=== PATIENT | female | born 1965 | race Caucasian/White ===

== ENCOUNTER → 2017-02-27 | Day surgery (SDC) | payer BC ==
[~2017-02-27] VITALS: Ht 167.6 cm; Wt 61.2 kg
[~2017-02-27] MED LIST: ALPR0.25 PO; CETI10TA17 PO; ESTR1TAB24 PO; FLUMAZENIL (ROMAZICON) 0.1 MG/ML 5 ML VIAL INJ PRN; MIDAZOLAM 2 MG/2 ML (VERSED) VIAL ONE; MIDAZOLAM 5 MG/5 ML (VERSED) VIAL ONE; NALOXONE 0.4 MG/ML 1 ML (NARCAN) VIAL IVP PRN; NEBI5TAB8 PO; NS IV 500 ML 500 ML IV PRN; NS IV 500 ML 500 ML ONE; TRAM50TA2 PO; [UNRECOGNIZED DRUG - CODE] PO; fentaNYL INJECTION 100 MCG/2 ML AMP ONE
--- NOTE | 2017-02-27 18:08 | ED EENT ---
History of Present Illness General Stated Complaint: FOREIGN OBJECT THROAT Source: patient, family Exam Limitations: no limitations History of Present Illness Time seen by provider: 18:04 Initial Comments Patient presents with her to the ER because she had swallowed a piece of meat around noon and got stuck in the back of her throat she is unable to swallow her secretions or any food or fluids pass the meat bolus. She has a patent airway and is able to speak although mildly hoarse. She says this is happened before but she is always been able to get the food to regurgitate by sticking her fingers in the back of her throat. Patient denies any liver disease , smoking or drug use or hepatitis history. She does however note occasional drink of alcohol. The patient said it was about 12:00 in the afternoon today when she ingested the meat bolus. Allergies and Home Medications Allergies Coded Allergies: Penicillins (Verified Allergy, Mild, 04/28/16) codeine (Unverified Adverse Reaction, Mild, NAUSEA, 04/27/16) Home Medications Alprazolam 0.25 Mg Tablet, 0.25 MG PO PRN, (Reported) Cetirizine HCl 10 Mg Tablet, 10 MG PO DAILY, (Reported) Estradiol 1 Mg Tablet, 1 MG PO DAILY, (Reported) Nebivolol HCl 5 Mg Tablet, 5 MG PO DAILY, (Reported) Tramadol HCl 50 Mg Tablet, 50 MG PO Q12H PRN for PAIN, #20 Prescribed by: JANICE REDDY on 04/28/16 1338 [Est Estrg/Mtest] , 1 TAB PO DAILY, (Reported) Review of Systems Constitutional: No chills, No fever Eyes: Denies Blindness, Denies Pain Nose: denies congestion, denies pain Mouth: denies pain, denies swelling Throat: pain, swelling, hoarse, other (complete esophageal blockage.) Respiratory: No cough, No phlegm, No short of breath, No wheezing Cardiovascular: No chest pain, No syncope Gastrointestinal: No abdominal pain, No constipation, No nausea, No vomiting Past Idfucyo-Pmhvtc-Zkepfw Hx Patient Social History Alcohol Use: Occasionally Uses Recreational Drug Use: No Smoking Status: Never a Smoker Recent Foreign Travel: No Contact w/Someone Who Travel: No Surgeries HX Surgeries: Yes (ORAL SURGERY) Respiratory Hx Respiratory Disorders: No Cardiovascular Hx Cardiac Disorders: Yes Neurological Hx Neurological Disorders: No Reproductive System Hx Reproductive Disorders: No Sexually Transmitted Disease: No HIV/AIDS: No Genitourinary Hx Genitourinary Disorders: No Gastrointestinal Hx Gastrointestinal Disorders: No Musculoskeletal Hx Musculoskeletal Disorders: Yes Musculoskeletal Disorders: Arthritis, Fibromyalgia Endocrine Hx Endocrine Disorders: No HEENT Loss of Vision: Bilateral Hearing Impairment: Denies Cancer Hx Cancer: No Psychosocial Hx Psychiatric Problems: Yes Behavioral Health Disorders: Anxiety Integumentary HX Skin/Integumentary Disorder: No Blood Transfusions Hx Blood Disorders: No Adverse Reaction to a Blood Tr: No (N/A) Physical Exam Vital Signs Vital Sign - Last 12Hours 02/27/17 18:15 Temp 97.5 Pulse 70 Resp 18 B/P (MAP) 148/107 Pulse Ox 98 O2 Delivery Room Air General Appearance: WD/WN, mild distress Eyes: bilateral eye EOMI, bilateral eye PERRL, bilateral eye normal inspection Nose: normal inspection, No sinus tenderness Mouth/Throat: normal mouth inspection, pharynx normal, excessive drooling, No pharynx swelling, No tongue swollen Neck: full range of motion, normal inspection, tender midline Cardiovascular: normal peripheral pulses, regular rate, rhythm Respiratory: chest non-tender, lungs clear Neurologic/Psychiatric: alert, oriented x 3 Skin: normal color, warm/dry Progress/Results/Core Measures Results/Orders My Orders Orders - ASHLY SHELL Suction Airway (02/27/17 18:22) Saline Lock/Iv-Start (02/27/17 18:22) Vital Signs/I&O Vital Sign - Last 12Hours 02/27/17 18:15 Temp 97.5 Pulse 70 Resp 18 B/P (MAP) 148/107 Pulse Ox 98 O2 Delivery Room Air Progress Note : Time: 18:20 Progress Note Over 6 hours of food bolus impaction and unable to pass any secretions or drink fluid past it. She will need a emergent bolus disimpaction. We'll contact general surgery. Plan to do postop here in the ER. The patient does not require anything for nausea or pain at this time. We'll get an IV started and a Yankauer for suctioning her mouth out. 2119: Status post endoscopic retrieval of food bolus by Dr. Reddy. Patient is doing well alert awake oriented swallowing her own secretions and is eaten an entire cup of ice chips without difficulty or reflux. She states she does not have a history of acid reflux or dysphagia other than the few times that food has gotten stuck in her throat. Images from the endoscopy did demonstrate some narrowing. Dr. Reddy wants to see her in the clinic this week in 4 days. No instructions were given from the surgeon for Carafate or a PPI. We'll start her a liquid diet and allow her to talk advance it as tolerated. Patient has her to drive her home. Consults Consults : Consulting Physician: JANICE REDDY MD Consults Notes 1820 spoke with general surgery and they plan to take her to ICU to do endoscopic retrieval of food bolus. Departure Impression Impression: Primary Impression: Foreign body in esophagus Qualified Codes: T18.108A - Unspecified foreign body in esophagus causing other injury, initial encounter Disposition: HOME, SELF-CARE Condition: Improved Departure-Patient Inst. Decision time for Depature: 21:16 Referrals: ARLEN HEATH MD (PCP/Family) Primary Care Physician Patient Instructions: Foreign Body, Swallowed, Adult (DC) Add. Discharge Instructions: You should keep your appointment with Dr. Reddy this . Start with a liquid diet and advance it as soon as you tolerate towards a regular diet. You should not drive home as the medicines you've been given we'll make you drowsy. By tomorrow you're okay to resume your normal activity and diet as you tolerated. If you have further recurrent symptoms he should return to the ER or your primary care physician as appropriate. Make sure you're chewing her food completely and you should take small bites. ASHLY SHELL Feb 27, 2017 18:07
[2017-02-27] MEDS: HURRICAINE EXT TUBE (BENZOCAINE) ONE (19:30)
[2017-02-27] MEDS: fentaNYL INJECTION 100 MCG/2 ML AMP IVP PRN ×2 (19:35→19:42)
--- NOTE | 2017-02-27 19:37 | History & Physicial ---
History of Present Illness History of Present Illness Reason for visit/HPI Food impaction in esophagus Date of Admission I consulted on this patient on 02/27/17 19:35 Attending Physician Janice Longoria MD Admitting Physician Sergio Freed MD Consult JANICE LONGORIA MD Allergies and Home Medications Allergies Coded Allergies: Penicillins (Verified Allergy, Mild, 04/28/16) codeine (Unverified Adverse Reaction, Mild, NAUSEA, 04/27/16) Home Medications Alprazolam 0.25 Mg Tablet, 0.25 MG PO PRN, (Reported) Cetirizine HCl 10 Mg Tablet, 10 MG PO DAILY, (Reported) Estradiol 1 Mg Tablet, 1 MG PO DAILY, (Reported) Nebivolol HCl 5 Mg Tablet, 5 MG PO DAILY, (Reported) Tramadol HCl 50 Mg Tablet, 50 MG PO Q12H PRN for PAIN, #20 Prescribed by: JANICE LONGORIA on 04/28/16 1338 [Est Estrg/Mtest] , 1 TAB PO DAILY, (Reported) Past Lursdub-Ssgaoy-Atufbj Hx Patient Social History Marrital Status: Employed/Student: employed Alcohol Use: Occasionally Uses Recreational Drug Use: No Smoking Status: Never a Smoker Recent Foreign Travel: No Contact w/other who traveled: No Recent Hopitalizations: No Recent Infectious Disease Expo: No Surgeries HX Surgeries: Yes (ORAL SURGERY) Surgeries: Hysterectomy Respiratory Hx Respiratory Disorders: No Cardiovascular Hx Cardiovascular Disorders: Yes Neurological Hx Neurological Disorders: No Reproductive System Hx Reproductive Disorders: No Sexually Transmitted Disease: No HIV/AIDS: No Genitourinary Hx Genitourinary Disorders: No Gastrointestinal Hx Gastrointestinal Disorders: No Musculoskeletal Hx Musculoskeletal Disorders: Yes Musculoskeletal Disorders: Arthritis, Fibromyalgia Endocrine Hx Endocrine Disorders: No HEENT Loss of Vision: Bilateral Hearing Impairment: Denies Cancer Hx Cancer: No Psychosocial Hx Psychiatric Problems: Yes Behavioral Health Disorders: Anxiety Integumentary HX Skin/Integumentary Disorder: No Blood Transfusions Hx Blood Disorders: No Adverse Reaction to a Blood Tr: No (N/A) Constitutional: no symptoms reported EENTM: no symptoms reported Respiratory: cough Cardiovascular: no symptoms reported Gastrointestinal: dysphagia Genitourinary: no symptoms reported Skin: no symptoms reported Psychiatric/Neurological: No Symptoms Reported Physical Exam Vital Signs Vital Sign - Last 12Hours 02/27/17 18:15 Temp 97.5 Pulse 70 Resp 18 B/P (MAP) 148/107 Pulse Ox 98 O2 Delivery Room Air Capillary Refill : Less Than 3 Seconds General Appearance: Severe Distress HEENT: Normal ENT Inspection Neck: Normal Inspection Respiratory: Lungs Clear Cardiovascular: Regular Rate, Rhythm Gastrointestinal: Non Tender, Soft Extremity: Normal Inspection Neurologic/Psychiatric: Alert, Oriented x3 Skin: Warm/Dry Assessment/Plan Assessment and Plan Food impaction in esophagus. for endoscopic disimpaction Problems: Admission Diagnosis Foreign body in esophagus JANICE LONGORIA MD Feb 27, 2017 7:37 pm
[2017-02-27] MEDS: MIDAZOLAM 2 MG/2 ML (VERSED) VIAL IVP PRN ×3 (19:40→19:45)
[2017-02-27] MEDS: MIDAZOLAM 5 MG/5 ML (VERSED) VIAL IVP PRN ×3 (19:48→19:52)
--- NOTE | 2017-02-27 19:53 | Conscious Sedation/ASA ---
Conscious Sedation Pre-Proced ASA Class: 2 Airway Mallampati Classification: (osage appropriate class) I. II. III, IV Lungs Heart ASA score ASA 1: a normal healthy patient ASA 2: a patient with a mild systemic disease (mid diabetes, controlled hypertension, obesity ASA 3: a patient with a severe systemic disease that limits activity (angina , COPD, prior Myocardial infarction) ASA 4: a patient with an incapacitating disease that is a constant threat to life (CHF, renal failure) ASA 5: a moribund patient not expected to survive 24 hrs. (ruptured aneurysm) ASA 6: a declared brain patient whose organs are being harvested. For emergent operations, add the letter E after the classification Grade 2 Sedation Plan: Discussed options with patient/fam Note The patient is an appropriate candidate to undergo the planned procedure, sedation, and anesthesia. The patient immediately re-assessed prior to indication. JANICE REDDY MD Feb 27, 2017 7:53 pm
--- NOTE | 2017-02-27 19:53 | Endoscopy Procedure Report ---
Endoscopy Report Date: Feb 27, 2017 Preoperative Diagnosis: Food impaction in esophagus Study Performed: Upper Endoscopy Procedure Instrument: Endoscope JANICE REDDY MD Feb 27, 2017 7:53 pm
--- NOTE | 2017-02-27 19:55 | Discharge Inst-Simple/Standard ---
Discharge Inst-Standard Discharge Medications New, Converted or Re-Newed RX: Call to Patients Pharmacy Patient Instructions/Follow Up Plan of Care/Instructions/FU: Protonix 40 mg daily for 30 days with 5 refills. F/U with me on , the Activity as Tolerated: Yes Discharge Diet: Soft Diet JANICE REDDY MD Feb 27, 2017 7:55 pm
[2017-02-27 21:21] VITALS: BP 129/95
--- NOTE | 2017-02-28 08:57 | PROCEDURE REPORT ---
PROCEDURE PHYSICIAN: JANICE REDDY DATE OF PROCEDURE: 02/27/2017 PROCEDURE: 1. Upper endoscopy. 2. Disimpaction of food bolus in the esophagus. 3. Balloon dilatation of distal esophageal stricture. SURGEON: Dr. Rdedy. INDICATION FOR THE PROCEDURE: This lady presented to the emergency room with impaction of a piece of pork in her esophagus. She was offered endoscopic management associated with possible dilatation, should a stricture be encountered. Informed consent was obtained after reviewing the procedures in detail. DESCRIPTION OF PROCEDURE: She was brought to the Intensive Care Unit and conscious sedation achieved using Versed and fentanyl. The flexible gastroscope was introduced down the esophagus where the impacted food was found at the proximal esophagus. This was gently disimpacted and advanced into the stomach. Endoscopic examination of the stomach and duodenum were normal. The scope was then brought back to the esophagus, which was examined thoroughly. FINDINGS: 1. Proximal esophageal stricture where the impaction had occurred, at about 20 cm from the incisors. It was inflamed and therefore balloon dilatation was deferred. 2. Tortuous esophagus, possibly contributing to her symptom. 3. Distal esophageal stricture, possibly peptic in nature, that was dilated to 20 mm with a balloon. She tolerated the procedure well and was taken to the emergency room, to be discharged as an outpatient. IMPRESSION: Food impaction of the esophagus. Stricture at 2 levels. Distal stricture dilated. She will be brought back in a couple of weeks to undergo further dilatation of the proximal esophageal stricture. Job ID: [id number] Dictated Date: 02/27/2017 19:58:05 Sand Operator Date: 02/28/2017 08:53:21 / radha MONTILLA
== END | disposition home or self-care (01) ==
LOC: EDUNIT# 17:53 → ER 17:55 → ENDO 18:25
PROVIDERS: ATTEND Surgery
DX: T18.128A Food in esophagus causing other injury, initial encounter (principal); K22.2 Esophageal obstruction; Y92.019 Unspecified place in single-family (private) house as the place of occurrence of the external cause

== ENCOUNTER → 2019-05-11 | Outpatient (CLI) | payer BC ==
[~2019-05-11] MED LIST changes: -FLUMAZENIL (ROMAZICON) 0.1 MG/ML 5 ML VIAL INJ PRN; -MIDAZOLAM 2 MG/2 ML (VERSED) VIAL ONE; -MIDAZOLAM 5 MG/5 ML (VERSED) VIAL ONE; -NALOXONE 0.4 MG/ML 1 ML (NARCAN) VIAL IVP PRN; -NS IV 500 ML 500 ML IV PRN; -NS IV 500 ML 500 ML ONE; -fentaNYL INJECTION 100 MCG/2 ML AMP ONE
== END ==
LOC: RAD 14:58
PROVIDERS: ATTEND Obstetrics & Gynecology
DX: Z12.31 Encounter for screening mammogram for malignant neoplasm of breast (principal)
CPT/HCPCS: 77067

== ENCOUNTER → 2020-05-27 | Outpatient (CLI) | payer BC ==
[~2020-05-27] MED LIST changes: -TRAM50TA2 PO; +TRM50T PO
--- NOTE | 2020-05-27 16:13 | Diagnostic Imaging Report ---
INDICATION: Routine screening. Comparison is made with prior mammogram from 05/11/2019 and 01/02/2016. 2-D and 3-D bilateral screening mammography was performed with CAD. Both breasts remain heterogeneously dense, limiting sensitivity of mammography. Rounded densities in the upper retroareolar left breast are noted appear similar to prior exam. This most likely represent cysts. There are benign calcifications in the right breast. No malignant appearing microcalcifications are seen. Axillae are unremarkable. IMPRESSION: BI-RADS Category 2 No mammographic features suspicious for malignancy are identified. ACR BI-RADS Category 2: Benign findings. Result letter will be mailed to the patient. Note: At least 10% of breast cancer is not imaged by mammography. Dictated by: Dictated on workstation # [id number]
== END ==
LOC: RAD 14:30
PROVIDERS: ATTEND Obstetrics & Gynecology
DX: Z12.31 Encounter for screening mammogram for malignant neoplasm of breast (principal)
CPT/HCPCS: 77063; 77067

== ENCOUNTER → 2020-09-08 | Outpatient (CLI) | payer BC | LOC: LABNPT 08:33 | PROVIDERS: ATTEND Nurse Practitioner Family | DX: Z20.828 Contact with and (suspected) exposure to other viral communicable diseases (principal) | CPT/HCPCS: 87635 ==

== ENCOUNTER → 2021-02-25 | Outpatient (CLI) | payer BC ==
--- NOTE | 2021-02-25 09:45 | Diagnostic Imaging Report ---
Indication: Left breast lump. Correlation is made with prior mammogram 05/27/2020 and 05/03/2019. 2-D and 3-D bilateral diagnostic mammography was performed with CAD. Both breasts are heterogeneously dense, limiting sensitivity of mammography. A BB marker was placed at the area of palpable abnormality in the upper outer left breast. There is a circumscribed mass just deep to this location which appears to be slightly larger when compared prior exam, likely an enlarging cyst. No other masses are seen. No malignant appearing microcalcifications are identified. Axillae are unremarkable. IMPRESSION: BI-RADS 0 Enlarging circumscribed density just deep to the area of palpable abnormality upper outer left breast, likely enlarging cyst. Further evaluation with ultrasound is recommended and will be performed today. ACR BI-RADS Category 0: Incomplete. (Needs additional imaging evaluation). Result letter will be mailed to the patient. Note: At least 10% of breast cancer is not imaged by mammography. Dictated by: Dictated on workstation # [id number]
--- NOTE | 2021-02-25 10:06 | Diagnostic Imaging Report ---
INDICATION: Palpable lump left breast. Correlation is made with diagnostic mammogram earlier same day. Sonography interrogation of area palpable lump upper outer left breast was performed. There are 2 cysts side by side at the 1:00 location, 1 to 2 cm from the nipple. Largest measures 1.8 x 0.8 x 1.9 cm, likely accounting for the circumscribed density noted mammographically. There is a slightly thicker walled cyst next to this measuring 1.2 x 0.7 x 1.0 cm. No internal vascularity is seen. No solid masses are detected. IMPRESSION: BI-RADS Category 3 Cysts at the 1:00 location left breast accounting for the mammographic density and palpable abnormality. The smaller cyst does show some slight wall thickening. A follow-up left breast ultrasound in 3 months is recommended to show stability or resolution. ACR BI-RADS Category 3: Probably benign findings. Dictated by: Dictated on workstation # [id number]
== END ==
LOC: RAD 09:01
PROVIDERS: ATTEND Obstetrics & Gynecology
DX: N60.02 Solitary cyst of left breast (principal)
CPT/HCPCS: 76642; 77065; G0279

== ENCOUNTER → 2021-05-25 | Outpatient (CLI) | payer BC ==
--- NOTE | 2021-05-25 14:44 | Diagnostic Imaging Report ---
INDICATION: Six month followup left breast nodules. COMPARISON: Correlation is made with prior mammograms from 02/25/2021 and 05/27/2020. TECHNIQUE: 2D and 3D bilateral diagnostic mammography was performed with CAD. FINDINGS: Both breasts remain heterogeneously dense, limiting the sensitivity of mammography. The circumscribed mass in the upper and outer aspect of the left breast at mid depth is similar in size and was shown by ultrasound to represent a cyst. This will be further evaluated with ultrasound today. No new mass is seen. There are scattered benign calcifications. No malignant appearing microcalcifications are seen. The axillae are unremarkable. IMPRESSION: Known left breast cyst in the upper outer left breast. This will be further evaluated with ultrasound today. No new abnormality is detected. ACR BI-RADS Category 0: Incomplete. (Needs additional imaging evaluation). Result letter will be mailed to the patient. Note: At least 10% of breast cancer is not imaged by mammography. Dictated by: Dictated on workstation # [id number]
--- NOTE | 2021-05-25 15:41 | Diagnostic Imaging Report ---
INDICATION: Left breast cysts. Patient presents for followup. COMPARISON: Correlation is made with the prior left breast ultrasound from 02/25/2021. FINDINGS: The previously noted thick-walled cyst at the 1 o'clock location of the left breast is no longer visualized. The simple cyst noted at this location persists and measures slightly larger at 2.3 x 2.2 x 0.7 cm compared with 1.8 x 0.8 x 1.9 cm. No solid mass is detected. IMPRESSION: Resolution of the previously noted thick-walled cyst at the 1 o'clock location of the left breast. The previously noted simple cyst does measure slightly larger on today's study. The patient may return to routine annual screening mammography. ACR BI-RADS Category 2: Benign findings. Result letter will be mailed to the patient. Note: At least 10% of breast cancer is not imaged by mammography. Dictated by: Dictated on workstation # [id number]
== END ==
LOC: RAD 13:45
PROVIDERS: ATTEND Obstetrics & Gynecology
DX: N60.02 Solitary cyst of left breast (principal)
CPT/HCPCS: 76642; 77066; G0279; 77062

== ENCOUNTER 2022-11-03 13:34 | Outpatient (RCR) | payer BC ==
[2022-11-03 14:31] LABS: BASOPHILS # (AUTO) 0.1 10^3/uL (0.0-0.1); BASOPHILS % (AUTO) 0 % (0-10); EOSINOPHILS # (AUTO) 4.2 10^3/uL (0.0-0.3); EOSINOPHILS % (AUTO) 30 % (0-10); HEMATOCRIT 41 % (35-52); HEMOGLOBIN 13.7 g/dL (11.5-16.0); LYMPHOCYTES # (AUTO) 1.3 10^3/uL (1.0-4.0); LYMPHOCYTES % (AUTO) 9 % (12-44); MEAN CORPUSCULAR HEMOGLOBIN 31 pg (25-34); MEAN CORPUSCULAR HGB CONC 34 g/dL (32-36); MEAN CORPUSCULAR VOLUME 93 fL (80-99); MEAN PLATELET VOLUME 8.6 fL (9.0-12.2); MONOCYTES # (AUTO) 1.3 10^3/uL (0.0-1.0); MONOCYTES % (AUTO) 10 % (0-12); NEUTROPHILS # (AUTO) 7.1 10^3/uL (1.8-7.8); NEUTROPHILS % (AUTO) 51 % (42-75); PLATELET COUNT 363 10^3/uL (130-400)
[2022-11-03 14:50] LABS: ALANINE AMINOTRANSFERASE 129 U/L (0-55); ALBUMIN 3.5 GM/DL (3.2-4.5); ALKALINE PHOSPHATASE 54 U/L (40-136); BILIRUBIN,TOTAL 0.4 MG/DL (0.1-1.0); BUN/CREATININE RATIO 26; CALCIUM 8.5 MG/DL (8.5-10.1); CARBON DIOXIDE 26 MMOL/L (21-32); CHLORIDE 98 MMOL/L (98-107); CREATININE SERUM 0.74 MG/DL (0.60-1.30); GFR ESTIMATED 93; GLUCOSE 99 MG/DL (70-105); POTASSIUM 4.2 MMOL/L (3.6-5.0); SODIUM 132 MMOL/L (135-145); TOTAL PROTEIN 5.7 GM/DL (6.4-8.2)
== END 2022-11-13 | disposition home or self-care (01) ==
LOC: ONC 13:34
PROVIDERS: ATTEND Internal Medicine Hematology & Oncology
DX: R21 Rash and other nonspecific skin eruption (principal); D72.10 Eosinophilia, unspecified; I10 Essential (primary) hypertension
CPT/HCPCS: 80053; 84484; 85025; G0463; 36415; 99204

== ENCOUNTER → 2022-11-04 | Outpatient (CLI) | payer BC ==
[~2022-11-04] MED LIST changes: +CATHETER FLUSH 10 ML SYR IV PRN; +IOHEXOL 350 MG/ML 100 ML (OMNIPAQUE 350) VIAL IV ONE; +NS 100 ML (IVPB) BAG IV ONE
--- NOTE | 2022-11-04 15:50 | Diagnostic Imaging Report ---
PROCEDURE: CT chest, abdomen, and pelvis with contrast. TECHNIQUE: Multiple contiguous axial images were obtained through the chest, abdomen, and pelvis after the administration of intravenous contrast. Auto Exposure Controls were utilized during the CT exam to meet ALARA standards for radiation dose reduction. INDICATION: Lymphadenopathy COMPARISON: None available FINDINGS: Lymph nodes are present within the bilateral axillary regions appearing prominent in number and mildly prominent in size. In particular, a left axillary lymph node demonstrates cortical thickening of up to near 7 mm. This adenopathy appears to extend in the left axillary tail is well. No additional adenopathy within the chest. No aneurysmal dilatation of the thoracic aorta. The heart is within normal limits in size. No pericardial effusion. No pleural effusion. The trachea is patent. No pneumothorax. The lungs are clear. A nondisplaced subacute to chronic lateral right 7th rib fracture is noted. 1.6 cm cyst within the anterolateral aspect of the left hepatic lobe. The liver is otherwise unremarkable. The spleen is unremarkable. The adrenal glands are unremarkable. The pancreas is unremarkable. The kidneys and bilateral ureters are unremarkable. No aneurysmal dilatation of the abdominal aorta. The appendix is unremarkable. The urinary bladder is unremarkable. The uterus is not visualized, likely surgically absent. No abnormal adnexal mass lesion. Bilateral inguinal lymph nodes are present which are mildly prominent. Largest conglomerate lymph node is noted within the left inguinal region measuring 2.5 x 1.1 cm. Mildly prominent lymph nodes are noted along the bilateral external iliac chains at the level of the acetabula. Mild diffuse anasarca. No bowel obstruction or pneumatosis. Expansile hypodensity within the left aspect of the sacrum with chronic remodeling of the left sacrum is present, consistent with a Tarlov cyst. No acute osseous abnormality of mild scattered osseous degenerative changes. IMPRESSION: Mildly prominent lymph nodes within the bilateral axillary regions and bilateral inguinal regions. This is nonspecific. Findings may be reactive in nature, though infiltrative process, including lymphoma would be an additional consideration. Recommend clinical correlation. Additionally, targeted ultrasound is recommended. Subacute to chronic nondisplaced lateral right 7th rib fracture. Additional findings as above. Dictated by: Dictated on workstation # [id number]
== END ==
LOC: RAD 14:53
PROVIDERS: ATTEND Internal Medicine Hematology & Oncology
DX: R59.9 Enlarged lymph nodes, unspecified (principal); S22.31XA Fracture of one rib, right side, initial encounter for closed fracture; X58.XXXA Exposure to other specified factors, initial encounter
CPT/HCPCS: 71260; 74177

== ENCOUNTER 2022-11-05 07:46 | Day surgery (SDC) | payer BC ==
[~2022-11-05] VITALS: Ht 167.6 cm; Wt 70.8 kg
[2022-11-05] VITALS (10 sets, daily range): BP systolic 101–140; BP diastolic 52–70
[~2022-11-05 07:46] MED LIST changes: -CATHETER FLUSH 10 ML SYR IV PRN; -IOHEXOL 350 MG/ML 100 ML (OMNIPAQUE 350) VIAL IV ONE; -NS 100 ML (IVPB) BAG IV ONE
[2022-11-05] MEDS ORDERED: NS IV 1000 ML 1,000 ML IV STA (08:08)
[2022-11-05] MEDS ORDERED: MIDAZOLAM 2 MG/2 ML (VERSED) VIAL IVP ONE (08:15)
[2022-11-05] MEDS ORDERED: LIDOCAINE 1% INJ 30 ML (XYLOCAINE) VIAL INJ ONE (08:15)
[2022-11-05] MEDS ORDERED: fentaNYL INJ 100 MCG/2 ML AMP IVP ONE (08:15)
[2022-11-05 08:42] LABS: ABSOLUTE RETIC # 75 10e9/uL (24-90); BASOPHILS # (AUTO) 0.1 10^3/uL (0.0-0.1); BASOPHILS % (AUTO) 1 % (0-10); EOSINOPHILS # (AUTO) 1.7 10^3/uL (0.0-0.3); EOSINOPHILS % (AUTO) 17 % (0-10); HEMATOCRIT 37 % (35-52); HEMOGLOBIN 12.6 g/dL (11.5-16.0); LYMPHOCYTES # (AUTO) 0.9 10^3/uL (1.0-4.0); LYMPHOCYTES % (AUTO) 9 % (12-44); MEAN CORPUSCULAR HEMOGLOBIN 31 pg (25-34); MEAN CORPUSCULAR HGB CONC 34 g/dL (32-36); MEAN CORPUSCULAR VOLUME 93 fL (80-99); MEAN PLATELET VOLUME 8.7 fL (9.0-12.2); MONOCYTES # (AUTO) 1.1 10^3/uL (0.0-1.0); MONOCYTES % (AUTO) 11 % (0-12); NEUTROPHILS # (AUTO) 6.3 10^3/uL (1.8-7.8); NEUTROPHILS % (AUTO) 62 % (42-75); PLATELET COUNT 343 10^3/uL (130-400); RETICULOCYTE % 1.86 % (0.50-2.40); WHITE BLOOD COUNT 10.2 10^3/uL (4.3-11.0)
[2022-11-05 08:53] LABS: PROTHROMBIN TIME PATIENT 13.7 SEC (12.2-14.7)
[2022-11-05 09:14] LABS: BAND NEUTROPHILS 0 %; NEUTROPHILS % (MANUAL) 65 %
[2022-11-05 09:15] LABS: BASOPHILS % (MANUAL) 0 %; EOSINOPHILS % (MANUAL) 18 %; LYMPHOCYTES % (MANUAL) 12 %; MONOCYTES % (MANUAL) 5 %; RBC MORPH NORMAL
--- NOTE | 2022-11-05 10:02 | Pre-Op Note & Conscious Sedat ---
Pre-Operative Progress Note Date of Available H&P: Nov 05, 2022 Date H&P Reviewed: Nov 05, 2022 Time H&P Reviewed: 09:00 Pre-Op Diagnosis: eosinophilia Conscious Sedation Pre-Proced Time 09:00 ASA Score 2 For ASA 3 and 4: Consider anesthesia and medical clearance. Also, for patients with a history of failed moderate sedation consider anesthesia. Airway Lungs Heart ASA score ASA 1: a normal healthy patient ASA 2: a patient with a mild systemic disease (mid diabetes, controlled hypertension, obesity ASA 3: a patient with a severe systemic disease that limits activity (angina, COPD, prior Myocardial infarction) ASA 4: a patient with an incapacitating disease that is a constant threat to life (CHF, renal failure) ASA 5: a moribund patient not expected to survive 24 hrs. (ruptured aneurysm) ASA 6: a declared brain- patient whose organs are being harvested. For emergent operations, add the letter E after the classification Mallampati Classification Grade 2 Sedation Plan Analgesia, Amnesia, Plan communicated to team members, Discussed options with patient/fam, Discussed risks with patient/fam The patient is an appropriate candidate to undergo the planned procedure, sedation, and anesthesia. The patient immediately re-assessed prior to indication. DEBO LYN MD Nov 05, 2022 10:02
[2022-11-05] MEDS ORDERED: HYDROcodone/APAP 5 MG/325 MG (LORTAB) TAB PO PRN (10:15)
--- NOTE | 2022-11-05 10:16 | Diagnostic Imaging Report ---
INDICATION: Acquired eosinophilia. Patient presents for CT-guided bone marrow aspiration biopsy. Patient brought to the CT suite and placed on the table in the prone position. Axial imaging through the pelvis was performed evaluate appropriate entry site. Low back was prepped and draped in usual sterile fashion. Small amount of 1% lidocaine was utilized for local anesthesia. The procedure was performed utilizing conscious sedation with radiology nursing and constant patient monitoring. Patient was given a total of 50 mcg of fentanyl intravenously and 1 mg of Versed intravenously. Total procedure times approximately 4 minutes. Bone marrow needle was advanced and placed with its tip along the posterior cortex of the right iliac bone. Needle was advanced through the cortex utilizing the bone marrow drill. 2 bone marrow aspirates were then obtained. Next, the bone marrow drill was utilized to obtain a bone marrow core biopsy. The needle was removed and hemostasis was obtained. The patient tolerated the procedure well and left the department in stable condition. IMPRESSION: Successful CT-guided bone marrow aspiration and core biopsy, utilizing conscious sedation. Pathology results are currently pending. Dictated by: Dictated on workstation # [id number]
== END 2022-11-05 12:15 | disposition home or self-care (01) ==
LOC: RAD 07:46 → SDC 10:00 → RAD 12:15
PROVIDERS: ATTEND Internal Medicine Hematology & Oncology
DX: D72.10 Eosinophilia, unspecified (principal); Z87.891 Personal history of nicotine dependence
CPT/HCPCS: 36415; 38222; 77012; 85007; 85027; 85045; 85055; 85610; 85730; 99156

== ENCOUNTER 2022-11-16 15:27 | Outpatient (RCR) | payer BC | END 2022-12-14 | disposition home or self-care (01) | LOC: ONC 15:27 | PROVIDERS: ATTEND Internal Medicine Hematology & Oncology | DX: D72.10 Eosinophilia, unspecified (principal); M79.89 Other specified soft tissue disorders | CPT/HCPCS: 93005; G0463; 99213 ==

== ENCOUNTER → 2022-12-27 | Outpatient (CLI) | payer BC ==
--- NOTE | 2022-12-27 14:28 | Diagnostic Imaging Report ---
INDICATION: Palpable lump left breast. COMPARISON: Correlation is made with the diagnostic mammogram from earlier this same day as well as prior left breast ultrasound from 05/25/2021. FINDINGS: Sonographic interrogation of the area of palpable abnormality was performed. This corresponds to the 1 o'clock location of the left breast, 1 cm from the nipple. The previously noted cyst at this location persists and is similar to perhaps slightly larger on today's study measuring 22 x 13 x 21 mm compared with 23 x 22 x 7 mm on the prior exam. There are some internal echoes, consistent with either hemorrhagic or proteinaceous fluid, within the cyst. There is posterior acoustic enhancement. No internal vascularity is seen. IMPRESSION: Complex cyst at the 1 o'clock location of the left breast 1 cm from the nipple, similar to perhaps slightly larger when compared with the prior study from May 2021. Patient may return to routine annual screening mammography. If this cyst creates some discomfort in the patient, consideration could be given to performance of an ultrasound-guided cyst aspiration. ACR BI-RADS Category 2: Benign findings. Result letter will be mailed to the patient. Note: At least 10% of breast cancer is not imaged by mammography. Dictated by: Dictated on workstation # [id number]
--- NOTE | 2022-12-28 10:25 | Diagnostic Imaging Report ---
INDICATION: Left breast lump. COMPARISON: Correlation is made with prior mammograms from 05/25/2021 and 02/25/2021. TECHNIQUE: 2D and 3D bilateral diagnostic mammography was performed with CAD. A BB marker was placed at the area of palpable abnormality in the upper outer left breast. FINDINGS: Both breasts are heterogeneously dense, limiting the sensitivity of mammography. The circumscribed mass in the upper outer left breast is located just deep to the BB marker and likely accounts for the palpable abnormality. This does appear to be similar in size when compared with the prior mammogram. No new mass is identified. No malignant-appearing microcalcifications are seen. The axillae are unremarkable. IMPRESSION: A circumscribed mass in the upper outer left breast is likely accountable for the palpable abnormality and appears to be similar in size when compared with prior imaging. Even so, sonographic interrogation of this area is recommended and will be performed today. ACR BI-RADS Category 0: Incomplete. (Needs additional imaging evaluation). Result letter will be mailed to the patient. Note: At least 10% of breast cancer is not imaged by mammography. Dictated by: Dictated on workstation # [id number]
== END ==
LOC: RAD 12:51
PROVIDERS: ATTEND Internal Medicine
DX: N60.02 Solitary cyst of left breast (principal); N63.21 Unspecified lump in the left breast, upper outer quadrant
CPT/HCPCS: 76642; 77066; G0279; 77062